=== PATIENT | male | born 1955 ===

== ENCOUNTER 2016-11-10 10:54 | Outpatient (CLI) | payer BC ==
[2016-11-10 12:13] LABS: eGFR (African) > 60; eGFR (Non-African) > 60
== END 2016-11-10 10:55 ==
LOC: LAB 10:54
PROVIDERS: ATTEND Family Medicine
DX: R73.9 Hyperglycemia, unspecified (principal); Z12.5 Encounter for screening for malignant neoplasm of prostate; Z11.59 Encounter for screening for other viral diseases
CPT/HCPCS: 36415; 80053; 80061; 86803; G0103

== ENCOUNTER 2018-07-12 11:41 | Outpatient (CLI) | payer BC ==
[2018-07-12 12:11] LABS: eGFR (Non-African) > 60
== END 2018-07-12 11:43 ==
LOC: LAB 11:41
PROVIDERS: ATTEND Family Medicine
DX: E16.2 Hypoglycemia, unspecified (principal)
CPT/HCPCS: 36415; 80053